=== PATIENT | female | born 1980 | race Caucasian/White ===

== ENCOUNTER 2017-02-08 05:01 | Inpatient (IN) | payer OTHER ==
[2017-02-08] VITALS (9 sets, daily range): BP systolic 94–124; BP diastolic 58–79
[~2017-02-08] VITALS: Ht 165.1 cm; Wt 122.7 kg
[~2017-02-08 05:01] MED LIST: COUMADIN PO; Coumadin Daily Dose PO; HEPARIN SO1000 UNIT1 IV; LOVENOX120 MG/0.8 SC; Lovenox SC; MOTRIN600 MG PO; NORCO 5/3251 TABLET PO; Natalcare Rx,Pramile PO; PRENATAL TABLE1 EAC3 PO; Percocet 5/325,Endoc PO
[2017-02-08] MEDS ORDERED: HEPARIN IJ (05:42)
[2017-02-08 06:09] LABS: EOSINOPHIL (%) 0.8 % (0-5); EOSINOPHIL COUNT 0.1 K/uL (0-0.3); HEMATOCRIT 34.4 % (36.0-46.0); IMMATURE GRANULOCYTE (%) 0.4 % (0.0-0.7); INSTRUMENT ABS NEUTROPHIL CT 6.3 K/uL; LYMPHOCYTE COUNT 1.4 K/uL (1.0-2.8); MCH 27.4 PG (29.0-34.0); MCHC 32.3 G/DL (30.0-36.0); MCV 84.9 FL (83-99); MEAN PLAT.VOLUME 10.3 uM^3 (9.5-12.4); MONOCYTE (%) 6.2 % (3-12); MONOCYTE COUNT 0.5 K/uL (0-0.8); NEUTROPHIL (%) 75.6 % (45-76); NEUTROPHIL COUNT 6.3 K/uL (1.8-6.4); PLATELET COUNT 206 K/uL (156-360); RBC DIS.WIDTH-CV 14.4 % (11.8-14.6); RBC DIS.WIDTH-SD 44.4 % (39-53); RED BLOOD COUNT 4.05 M/uL (3.80-5.20); WHITE BLOOD COUNT 8.4 K/uL (4.1-10.2)
[2017-02-08 06:42] LABS: PROTHROMBIN TIME 10.9 SEC (10.2-12.9)
[2017-02-08 06:44] LABS: FIBRINOGEN 686 mg/dL (150-450); PTT 24.9 SEC (25-37)
[2017-02-09 03:39] VITALS: BP 98/60
[2017-02-09 07:03] VITALS: BP 110/67
[2017-02-09 08:34] LABS: EOSINOPHIL (%) 0.8 % (0-5); EOSINOPHIL COUNT 0.1 K/uL (0-0.3); HEMATOCRIT 30.2 % (36.0-46.0); IMMATURE GRANULOCYTE (%) 0.3 % (0.0-0.7); INSTRUMENT ABS NEUTROPHIL CT 5.5 K/uL; LYMPHOCYTE COUNT 1.7 K/uL (1.0-2.8); MCH 27.1 PG (29.0-34.0); MCHC 31.5 G/DL (30.0-36.0); MCV 86.3 FL (83-99); MEAN PLAT.VOLUME 10.1 uM^3 (9.5-12.4); MONOCYTE COUNT 0.6 K/uL (0-0.8); NEUTROPHIL (%) 69.7 % (45-76); NEUTROPHIL COUNT 5.5 K/uL (1.8-6.4); PLATELET COUNT 181 K/uL (156-360); RBC DIS.WIDTH-CV 14.5 % (11.8-14.6); RBC DIS.WIDTH-SD 45.1 % (39-53); WHITE BLOOD COUNT 7.9 K/uL (4.1-10.2)
[2017-02-09 11:09] VITALS: BP 128/72
[2017-02-09 15:58] VITALS: BP 120/68
[2017-02-09 18:46] VITALS: BP 118/62
[2017-02-09 23:04] VITALS: BP 146/74
[2017-02-10 02:26] VITALS: BP 124/70
[2017-02-10 07:27] VITALS: BP 114/57
[2017-02-10] MEDS ORDERED: IBUPROFEN800 MG PO (09:11)
[2017-02-10] MEDS ORDERED: ENDOCET 5-3251 EACH PO (09:11)
== END 2017-02-10 12:55 | disposition home or self-care (01) | DRG 765 ==
LOC: 2WEST 05:01 → 2SOUTH 14:45 → 2WEST 02-10 12:55
PROVIDERS: Obstetrics & Gynecology
PROC: 10D00Z1 Extraction of Products of Conception, Low, Open Approach (ICD-10-PCS; principal; 2017-02-08)
DX: O34.211 Maternal care for low transverse scar from previous cesarean delivery (principal); D68.51 Activated protein C resistance; Z37.0 Single live birth; Z3A.39 39 weeks gestation of pregnancy; O99.214 Obesity complicating childbirth; O99.12 Other diseases of the blood and blood-forming organs and certain disorders involving the immune mechanism complicating childbirth; E66.01 Morbid (severe) obesity due to excess calories; D62 Acute posthemorrhagic anemia; D50.9 Iron deficiency anemia, unspecified; O99.02 Anemia complicating childbirth; Z86.718 Personal history of other venous thrombosis and embolism; Z68.41 Body mass index [BMI] 40.0-44.9, adult
CPT/HCPCS: 85025; 85384; 85610; 85730; 86850; 86900; 86901; 88307; J0690; J1100; J1644; J2274; J2405; J3010; J7120